=== PATIENT | female | born 1965 | race African-American/Black ===

== ENCOUNTER 2023-12-26 01:44 | Emergency (ER) | payer BC ==
[~2023-12-26] VITALS: Ht 170.2 cm; Wt 84.0 kg
[2023-12-26 01:46] VITALS: TEMP 97.7; O2SAT 99
[2023-12-26] MEDS: SODIUM CHLORIDE 0.9% 1,000 ML IV ONE (02:00)
[2023-12-26 02:53] LABS: HEMATOCRIT 35.5 % (36.0-48.0); HEMOGLOBIN 12.1 g/dL (12.0-16.0); MEAN CORPUSCULAR HEMOGLOBIN 29.4 pg (28.0-32.0); MEAN CORPUSCULAR HGB CONC 34.1 g/dL (31.0-37.0); MEAN CORPUSCULAR VOLUME 86.2 fL (81.0-99.0); PLATELET 210 x1000/uL (130-400); RED BLOOD CELL COUNT 4.12 mill/uL (4.2-5.4); RED CELL DISTRIBUTION WIDTH 14.4 % (11.6-14.6); WHITE BLOOD COUNT 5.8 x1000/uL (4.5-11.0)
[2023-12-26 02:57] LABS: CHLORIDE 106 mEq/L (98-107); POTASSIUM 3.8 mEq/L (3.5-5.1); SODIUM 140 mEq/L (136-145)
[2023-12-26 02:58] LABS: CALCIUM 9.1 mg/dL (8.7-10.4); CARBON DIOXIDE 28 mEq/L (21-32)
[2023-12-26 03:03] LABS: GLUCOSE 94 mg/dL (70-105); UREA NITROGEN BLOOD 13 mg/dL (9-23)
[2023-12-26 03:05] LABS: ALANINE AMINOTRANSFERASE 21 IU/L (10-49); ASPARTATE AMINOTRANSFERASE 22 IU/L (<34); CREATINE KINASE 138 IU/L (34-145)
[2023-12-26 03:06] LABS: BILIRUBIN TOTAL 0.4 mg/dL (0.1-1.0); PROTEIN TOTAL 6.3 g/dL (6.0-8.3)
[2023-12-26 03:15] VITALS: BP 109/47; PULSE 68; RESP 18
[2023-12-26] MEDS: KETOROLAC 15MG/ML VIAL IV ONE (03:15)
== END 2023-12-26 04:45 | disposition home or self-care (01) ==
LOC: ER 01:44
DX: M62.838 Other muscle spasm (principal); E78.00 Pure hypercholesterolemia, unspecified
CPT/HCPCS: 99283; 96374; 96361; 80053; 82550; 85027; 85379; 36415; J1885; J7030